=== PATIENT | male | born 1985 | race Caucasian/White ===

== ENCOUNTER → 2019-07-23 15:00 | Outpatient (CLI) | payer OTHER, SELFPAY | PROVIDERS: Visit Provider Nurse Practitioner Family | DX: R11.2 Nausea with vomiting, unspecified (principal); R63.0 Anorexia | CPT/HCPCS: 87086 ==

== ENCOUNTER → 2020-08-25 15:15 | Outpatient (CLI) | payer SELFPAY ==
[2020-08-25 15:35] LABS: Basophils # 0.1 K/mm3 (0-0.2); Basophils % 0.9 % (0.1-2.0); Eosinophils # 0.2 K/mm3 (0.0-0.4); Eosinophils % 2.5 % (0.1-12.0); Hemoglobin 15.9 g/dL (14.1-18.0); Lymphocytes # 2.2 K/mm3 (0.7-4.5); Lymphocytes % 24.7 % (10-50); Mean Corpuscular Volume 93.9 fl (80-94); Monocytes # 0.6 K/mm3 (0.1-1.0); Monocytes % 6.3 % (1.7-9.3); Neutrophils # 5.9 K/mm3 (1.8-7.8); Neutrophils % 65.6 % (37.0-80.0); Platelet Count 256 K/mm3 (142-424); Red Blood Count 5.11 M/mm3 (4.60-6.20); Red Cell Distribution Width 12.5 % (11.5-17.5)
[2020-08-25 16:30] LABS: Chloride 106 mmol/L (98-107)
[2020-08-25 16:31] LABS: Potassium 5.2 mmoL/L (3.5-5.1); Sodium 140 mmol/L (136-145)
[2020-08-25 16:33] LABS: Alanine Aminotransferase 37 U/L (12-78); Anion Gap 12.2 mEq/L (5-15); Aspartate Amino Transferase 37 U/L (17-59); Blood Urea Nitrogen 15 mg/dl (9-20); Carbon Dioxide 27 mmol/L (22.0-30.0); Estimated Glomerular Filt Rate 109 ml/min (>60); GFR (African American) 132 ML/MIN (>60)
[2020-08-25 16:34] LABS: Albumin Level 4.3 g/dl (3.5-5.0); Albumin/Globulin Ratio 1.4 (1.1-1.8); Alkaline Phosphatase 97 U/L (38-126); Bilirubin,Total 0.7 mg/dl (0.2-1.3); Calcium 9.8 mg/dl (8.4-10.2); Cholesterol 227 mg/dl (140-200); Glucose 100 mg/dl (74-100); HDL Cholesterol 38 mg/dl (40-60); Total Protein,Serum 7.3 g/dl (6.3-8.2); Triglycerides 366 mg/dl (30-150); VLDL Cholesterol 73 mg/dL (0-40)
[2020-08-25 16:45] LABS: Direct LDL Cholesterol 140.69 mg/dL (100-129)
== END ==
PROVIDERS: Visit Provider Nurse Practitioner
DX: E66.01 Morbid (severe) obesity due to excess calories (principal)
CPT/HCPCS: 36415; 80053; 80061; 85025

== ENCOUNTER → 2020-12-11 13:58 | Outpatient (CLI) | payer OTHER, SELFPAY ==
[2020-12-12 11:50] LABS: Covid-19 Nasal PCR Sendout P&C Negative
== END ==
PROVIDERS: PCP Emergency Medicine; Visit Provider Emergency Medicine
DX: Z20.822 Contact with and (suspected) exposure to COVID-19 (principal)
CPT/HCPCS: U0004

== ENCOUNTER 2021-09-29 10:19 | Emergency (ER) | payer BC, SELFPAY ==
[2021-09-29 10:25] VITALS: BP 142/89; PULSE 91; RESP 20; TEMP 37; O2SAT 98; BMI 34.8
[2021-09-29 10:43] LABS: Apearance,Urine Clear (Clear); Color,Urine Yellow (Yellow)
[2021-09-29 10:44] LABS: Bilirubin,Urine Negative (Negative); Blood, Urine Negative (Negative); Glucose,Urine (UA) Negative (Negative); Ketones,Urine Negative (Negative); PH,Urine 5.5 (5.0-8.5); Protein,Urine Negative (Negative); Specific Gravity, Urine 1.025 (1.005-1.030); UTC Leukocyte Esterase,Urine Negative (Negative); UTC Nitrate,Urine Negative (Negative); Urobilinogen,Urine 0.2 EU/dl (0.2)
--- NOTE | 2021-09-29 11:12 | HMH.EDUTC ---
[facility] [place] Clinical Impression: Low back pain Qualifiers: Chronicity: unspecified Back pain laterality: midline Sciatica presence: without sciatica Qualified Code(s): M54.50 - Low back pain, unspecified Disposition: Home, Self-Care Condition on Discharge: Good Instructions: DI for Low Back Pain, DI for Gastroesophageal Reflux Disease (GERD) Additional Instructions: Make sure to follow up with Family Doctor as discussed for further testing and evaluation Return if neededS Straight to ER if pain returns or worsens Referrals: Gabino Yeager MD [Primary Care Provider] - As needed Forms: Work/School Release Time of Disposition: 11:42 Medical Decision Making - Hilton Inquiry Pt receiving controlled substance: No Hilton was queried for this patient: No Vital Signs: 09/29/21 10:25 09/29/21 11:41 Temperature 98.6 F 98.6 F Temperature Source Oral Pulse Rate 91 H Pulse Rate [Right Brachial] 91 H Respiratory Rate 20 20 Blood Pressure 142/89 H Blood Pressure [Right Arm] 142/89 H Blood Pressure Mean [Right Arm] 106 Blood Pressure Source [Right Arm] Automatic Cuff Blood Pressure Position [Right Arm] Sitting 02 Sat by Pulse Oximetry 98 Oxygen Delivery Method Room Air - Lab Data Lab results reviewed: Yes: I reviewed the patient's lab results. Lab Results 09/29/21 10:32: Urine Color Yellow, Urine Appearance Clear, Urine pH 5.5, Ur Specific [place] 1.025, Urine Protein Negative, Urine Glucose (UA) Negative, Urine Ketones Negative, Urine Blood Negative, Urine Nitrate Negative, Urine Bilirubin Negative, Urine Urobilinogen 0.2, Ur Leukocyte Esterase Negative Orders (Tests/Meds): ED MEDICATIONS Discontinued Medications Generic Name Dose Route Start Last Admin Trade Name Freq PRN Reason Stop Dose Admin Belladonna Alkaloids 60 ml 09/29/21 11:20 09/29/21 11:24 Gi Cocktail 60ml Udc PO 09/29/21 11:21 60 ml ONCE ONE Administration Medical Decision Narrative: Discussed with patient about transfer to the ED for further work up and evaluation and patient declined State that pain is improved and he would follow up with his family doctor for further testing and evaluation if symptoms continued to R/O gallbladder if needed States that GI coctail helped with discomfort [facility] [place] - General Stated complaint: kidney pain for a week Time Seen by Provider: 09/29/21 11:12 Mode of Arrival: Ambulatory Source of Information: Patient Limitations: No Limitations Description of Symptoms (Recalled from Triage Doc. by RN): PATIENT C/O KIDNEY PAIN AND LOWER BACK PAIN X 2 WEEKS HEENT Symptoms (Recalled from RN notes): No Resp Symptoms (Recalled from RN notes): No Skin Symptoms (Recalled from RN notes): No MS Symptoms (Recalled from RN notes): No Functional Status (Recalled from RN notes): wnl - History of Present Illness Provider Complaint: Patient states that he has been having pain in lower back area off and on for close to a month State that at times also he is belching and feeling like he has pain on and off in his mid upper abdomen that is worse after eating States that last night he was having some pain in his back again so he wanted to come in and get checked to see if may have a UTI States that he had symptoms like this a few years back and was seen by PCP but went away - Related Data Allergies Allergy/AdvReac Type Severity Reaction Status Date / Time No Known Allergies Allergy Verified 09/23/19 15:46 - Worker's Comp Is this a Worker's Comp case?: No [facility] History - Hepatitis A Screen Drug use history?: No High risk sexual behaviors?: No History of sexually transmitted infection?: No Currently employed?: No Childcare worker?: No Do you have indoor plumbing?: Yes Do you have electricity?: Yes Attestation statement:: This patient has been screened for Hepatitis A risk factors. I have reviewed the patient's past medical history: Yes Medical History: Reports:: Heart Murmur D
[2021-09-29 11:41] VITALS: BP 142/89; PULSE 91; RESP 20; TEMP 37; O2SAT 98
== END 2021-09-29 11:45 | disposition home or self-care (01) ==
PROVIDERS: Emergency Provider Nurse Practitioner; PCP Emergency Medicine
DX: M54.50 Low back pain, unspecified (principal); R01.1 Cardiac murmur, unspecified
CPT/HCPCS: 81003; 99202; G0463

== ENCOUNTER → 2021-10-19 08:12 | Outpatient (CLI) | payer BC, SELFPAY ==
--- NOTE | 2021-10-19 08:12 | US_ITS ---
PROCEDURE: US GALLBLADDER CLINICAL INDICATION: low back pain and abdominal pain COMPARISON: No exams were available for comparison FINDINGS: Pancreas: Unremarkable/Not well seen Liver: Unremarkable. There is appropriate direction of blood flow within a non dilated portal vein. Right kidney: Unremarkable appearing. No hydronephrosis. Gallbladder: No stones are evident. There is no gallbladder wall thickening. Common duct is normal in diameter. IMPRESSION: Negative gallbladder ultrasound. No stones evident. Dictated by: Omari Dooley MD 10/19/2021 17:22 Omari Dooley MD in [place] 10/19/2021 17:22
== END ==
PROVIDERS: PCP Emergency Medicine; Visit Provider Family Medicine
DX: R10.9 Unspecified abdominal pain (principal); M54.50 Low back pain, unspecified
CPT/HCPCS: 76705